=== PATIENT | male | born 1985 | race Caucasian/White ===

== ENCOUNTER 2018-08-16 19:35 | Emergency (ER) | payer BC, OTHER ==
[2018-08-16 19:47] VITALS: BP 135/57; PULSE 66; TEMP 97.8; BMI 30.8
[2018-08-16] MEDS ORDERED: MECLIZINE HCL 25 MG TABLET (FP) PO ONE (20:06)
[2018-08-16] MEDS ORDERED: SODIUM CHLORIDE 0.9% 1000 ML INFUS.BAG IV ONE (20:06)
[2018-08-16] MEDS ORDERED: MECLIZINE HCL 25 MG TABLET (FP) ONE (20:15)
--- NOTE | 2018-08-16 20:23 | PDOC ---
History of Present Illness - General History Source: Patient Exam Limitations: No Limitations <Elaine Lowe - Last Filed: 08/16/18 20:40> - History of Present Illness Initial Comments: 08/16/18 21:02 The patient is a 32 year old male, with a significant past medical history of seasonal allergies, who presents to the emergency department with, 3 days of dizziness. He describes his dizziness as an unsteadiness worsened when making sudden movements such as getting up fast or quickly moving his head. Today he notes, losing his balance and falling over when he went to bend down prompting his visit to the ER. He denies any recent fevers, chills, or headache. He denies any recent nausea, vomit, diarrhea or constipation. He denies any recent chest pain or shortness of breath. He denies any recent dysuria, frequency, urgency or hematuria. Allergies: NKDA <Sury Mcintosh - Last Filed: 08/16/18 21:02> - General Chief Complaint: Lightheaded Stated Complaint: DIZZY X3D Time Seen by Provider: 08/16/18 19:56 Past History - Past Medical History COPD: No Other medical history: CONCUSSIONS - Immunization History Td Vaccination: Yes TDAP Vaccination: Yes Immunization Up to Date: Yes - Suicide/Smoking/Psychosocial Hx Smoking Status: No Smoking History: Never smoked Have you smoked in the past 12 months: No Number of Cigarettes Smoked Daily: 0 Cigars Per Day: 0 Hx Alcohol Use: No Drug/Substance Use Hx: No Substance Use Type: None <Elaine Lowe - Last Filed: 08/16/18 20:40> <Sury Mcintosh - Last Filed: 08/16/18 21:02> - Past Medical History Allergies/Adverse Reactions: Allergies Allergy/AdvReac Type Severity Reaction Status Date / Time No Known Allergies Allergy Verified 09/21/15 01:04 Home Medications: Ambulatory Orders Loratadine [Claritin] 10 mg PO PRN PRN 08/16/18 Meclizine HCl 25 mg PO QID PRN #20 tablet 08/16/18 *Physical Exam - Vital Signs Last Vital Signs Temp Pulse Resp BP Pulse Ox 97.8 F 66 16 135/57 L 97 08/16/18 19:41 08/16/18 19:41 08/16/18 19:41 08/16/18 19:41 08/16/18 19:41 - Physical Exam Comments: 08/16/18 20:41 on exam head atraumatic. lungs clear heart rrr no mrg abd sfot ntn. nuero alert oriented x 3 CNII - XII intact. speech clear. 5/5 strength all four ext. finger to nose nml. heel to packer normal. alt hand movement normal. gait steady. pos angelia hallpike to left. with horiz nystagmus. <Elaine Lowe - Last Filed: 08/16/18 20:40> - Vital Signs Last Vital Signs Temp Pulse Resp BP Pulse Ox 97.8 F 66 16 135/57 L 97 08/16/18 19:41 08/16/18 19:41 08/16/18 19:41 08/16/18 19:41 08/16/18 19:41 <Sury Mcintosh - Last Filed: 08/16/18 21:02> Moderate Sedation - Procedure Monitoring Vital Signs: Procedure Monitoring Vital Signs Temperature 97.8 F 08/16/18 19:41 Pulse Rate 66 08/16/18 19:41 Respiratory Rate 16 08/16/18 19:41 Blood Pressure 135/57 L 08/16/18 19:41 O2 Sat by Pulse Oximetry (%) 97 08/16/18 19:41 <Elaine Lowe - Last Filed: 08/16/18 20:40> - Procedure Monitoring Vital Signs: Procedure Monitoring Vital Signs Temperature 97.8 F 08/16/18 19:41 Pulse Rate 66 08/16/18 19:41 Respiratory Rate 16 08/16/18 19:41 Blood Pressure 135/57 L 08/16/18 19:41 O2 Sat by Pulse Oximetry (%) 97 08/16/18 19:41 <Sury Mcintosh - Last Filed: 08/16/18 21:02> ED Treatment Course - LABORATORY CBC & Chemistry Diagram: 08/16/18 20:10 08/16/18 20:14 - Medications Given in the ED: ED Medications Discontinued Medications Generic Name Dose Route Start Last Admin Trade Name Freq PRN Reason Stop Dose Admin Meclizine HCl 25 mg 08/16/18 20:06 08/16/18 20:16 Antivert - PO 08/16/18 20:07 25 mg ONCE ONE Administration Sodium Chloride 1,000 ml 08/16/18 20:06 08/16/18 20:14 Normal Saline - IV 08/16/18 20:07 1,000 ml ONCE ONE Administration <ChrissyElaine - Last Filed: 08/16/18 20:40> - LABORATORY CBC & Chemistry Diagram: 08/16/18 20:10 08/16/18 20:14 - ADDITIONAL ORDERS Additional order review: Laboratory Results 08/16/18 20:14 Sodium 135 L Potassium 3.8 Chloride 102 Carbon Dioxide 25 Anion Gap 8 BUN 23 H Creatinine 1.0 Creat Clearance w eGFR > 60 Random Glucose 123 H Calcium 9.1 Total Bilirubin 0.7 AST 29 D ALT 45 H D Alkaline Phosphatase 69 Total Protein 7.0 Albumin 4.0 08/16/18 20:10 RBC 5.20 MCV 92.0 MCHC 33.3 RDW 12.4 MPV 10.6 Neutrophils % 64.3 D Lymphocytes % 24.1 D Monocytes % 7.3 Eosinophils % 3.8 D Basophils % 0.5 - Medications Given in the ED: ED Medications Discontinued Medications Generic Name Dose Route Start Last Admin Trade Name Freq PRN Reason Stop Dose Admin Meclizine HCl 25 mg 08/16/18 20:06 08/16/18 20:16 Antivert - PO 08/16/18 20:07 25 mg ONCE ONE Administration Sodium Chloride 1,000 ml 08/16/18 20:06 08/16/18 20:14 Normal Saline - IV 08/16/18 20:07 1,000 ml ONCE ONE Administration <Sury Mcintosh - Last Filed: 08/16/18 21:02> Medical Decision Making - Medical Decision Making 08/16/18 20:20 32 yo male no pmhx here with /co feeling dizzy and lightheaded. started 3 days ago. no f/c no nasal congestion does have h/o seasonal allergies. no cough no n/ v feels lightheaded when going from sitting to standing and also has sense of unsteadiness, sense of motion worse with movement and worse with head turning. no trauma. no focal weakness. no change to speech or vision. on exam head atraumatic. lungs clear heart rrr no mrg abd sfot ntn. nuero alert oriented x 3 CNII - XII intact. speech clear. 5/5 strength all four ext. finger to nose nml. heel to packer normal. alt hand movement normal. gait steady. pos angelia hallpike to left. with horiz nystagmus. pt sxs consistent with peripheral vertigo. however due to orthostatic component differential includes anemia. electrolyte abnoramlity dehydration. plan labs ivf meclizine. reasses. <Elaine Lowe - Last Filed: 08/16/18 20:40> *DC/Admit/Observation/Transfer <Elaine Lowe - Last Filed: 08/16/18 20:40> - Attestations Scribe Attestion: 08/16/18 21:02 Documentation prepared by Sury Mcintosh, acting as medical illustrator for Elaine Lowe MD. <Sury Mcintosh - Last Filed: 08/16/18 21:02> Diagnosis at time of Disposition: Positional vertigo - Discharge Dispostion Condition at time of disposition: Improved - Prescriptions Prescriptions: Meclizine HCl 25 mg PO QID PRN #20 tablet PRN Reason: Vertigo - Referrals Referrals: Chang Catherine MD [Staff Physician] - - Patient Instructions Printed Discharge Instructions: Benign Paroxysmal Positional Vertigo Additional Instructions: you can take meclizine 25 mg every 6 hrs as needed for vertigo. you should follow up with a neurologist for symptoms that persist beyond one week. return for any weakness. difficulty walking or any concerns. see referral information for dr catherine.
[2018-08-16 20:34] LABS: BASO % 0.5 % (0-2.0); EOS % 3.8 % (0-4.5); HEMATOCRIT 47.8 % (35.4-49); HEMOGLOBIN 15.9 GM/dl (11.7-16.9); LYMPH % 24.1 % (8-40); MCH 30.6 pg (25.7-33.7); MCHC 33.3 g/dl (32.0-35.9); MEAN PLT VOLUME 10.6 fl (7.5-11.1); MONO % 7.3 % (3.8-10.2); NEUT % 64.3 % (42.8-82.8); PLATELET COUNT 140 K/MM3 (134-434); RDW 12.4 % (11.9-15.9); WHITE BLOOD COUNT 6.8 K/mm3 (4.0-10.8)
[2018-08-16 20:45] LABS: ALK PHOS 69 U/L (32-92); ANION GAP 8 MMOL/L (8-16); BILIRUBIN,TOTAL 0.7 mg/dl (0.2-1.0); BLOOD UREA NITROGEN 23 mg/dl (7-18); CALCIUM 9.1 mg/dl (8.4-10.2); CHLORIDE 102 mmol/L (98-107); CO2 25 mmol/L (22-28); GLUCOSE,RANDOM 123 mg/dl (74-106); POTASSIUM 3.8 mmol/L (3.5-5.1); SGOT/AST 29 U/L (10-42); SGPT/ALT 45 U/L (10-40); SODIUM 135 mmol/L (136-145)
== END 2018-08-16 21:08 | disposition home or self-care (01) ==
LOC: FER 19:35
PROC: 3E0337Z Introduction of Electrolytic and Water Balance Substance into Peripheral Vein, Percutaneous Approach (ICD-10-PCS; principal; 2018-08-16)
DX: H81.10 Benign paroxysmal vertigo, unspecified ear (principal)
CPT/HCPCS: 36415; 80053; 85025; 99282-25; J7030